=== PATIENT | female | born 1970 | race Caucasian/White ===

== ENCOUNTER 2017-09-15 00:24 | Emergency (ER) | payer OTHER ==
[2017-09-15] MEDS ORDERED: MORPHINE SULFATE 10 MG/ML SYRINGE IVP STA (00:41)
[2017-09-15] MEDS ORDERED: ONDANSETRON 4 MG/2 ML VIAL IVP STA (00:41)
--- NOTE | 2017-09-15 00:48 | ED ---
General Adult HPI - General Chief complaint: Urogenital Stated complaint: abdominal pain Time Seen by Provider: 09/15/17 00:34 Source: patient Mode of arrival: ambulatory Limitations: no limitations - History of Present Illness Initial comments: 47 year-old female patient presents to emergency department today with complaints of lower abdominal pain and lower back pain since yesterday afternoon. Patient states that she has had no urine output since 0300 yesterday morning. She states that at that time she voided a very small amount. States that she has not had any urine output at all throughout the rest of the day. States that the pain in her lower abdomen seems to be getting worse. She describes it as a sharp cramping pain. Prior to this she states that she was urinating normally, denying any dysuria, hematuria, urinary frequency, or urinary urgency. States that she has been having normal bowel movements, the last one was yesterday. She denies any nausea or vomiting with this. Patient did have an elevated temperature in triage however was unaware that she had a fever. Patient denies any recent rash, chills, shortness breath , chest pain, abdominal pain, nausea, vomiting, diarrhea, constipation, numbness , tingling, dizziness, weakness, headache, visual changes, or any other complaints. She states she is perimenopausal, states she has had a tubal ligation approximately 9 years ago. She does have a past medical history significant for endometriosis. States that she did have surgery on her uterus at one time and they did accidentally rupture the bladder. She states that she has not had any problems urinating since this procedure. - Related Data Previous Rx's Medication Instructions Recorded Hydrocodone/Acetaminophen [[place] 1 tab PO Q6HR PRN #15 tab 09/15/17 5-325] Allergies Allergy/AdvReac Type Severity Reaction Status Date / Time No Known Allergies Allergy Verified 09/15/17 00:32 Review of Systems ROS Statement: Those systems with pertinent positive or pertinent negative responses have been documented in the HPI. ROS Other: All systems not noted in ROS Statement are negative. Past Medical History Additional Past Medical History / Comment(s): endometriosis. fibroid cysts. History of Any Multi-Drug Resistant Organisms: None Reported Additional Past Surgical History / Comment(s): laproscopic abdominal surgery. Past Psychological History: No Psychological Hx Reported Smoking Status: Current every day smoker Past Alcohol Use History: Occasional Past Drug Use History: None Reported General Exam Limitations: no limitations General appearance: alert, in no apparent distress, other (Is a well-developed, well-nourished adult female patient in no acute distress. Vital signs upon presentation are temperature 100.3F, pulse 101, respirations 16, blood pressure 191/96, pulse ox 100% on room air.) Respiratory exam: Present: normal lung sounds bilaterally. Absent: respiratory distress, wheezes, rales, rhonchi, stridor Cardiovascular Exam: Present: regular rate, normal rhythm, normal heart sounds. Absent: systolic murmur, diastolic murmur, rubs, gallop, clicks GI/Abdominal exam: Present: soft, distended, tenderness (Suprapubic tenderness) , normal bowel sounds, hyperactive bowel sounds. Absent: guarding, rebound, rigid Back exam: Present: normal inspection, CVA tenderness (R). Absent: CVA tenderness (L) Neurological exam: Present: alert, oriented X3, CN II-XII intact Psychiatric exam: Present: normal affect, normal mood Skin exam: Present: warm, dry, intact, normal color. Absent: rash Course Vital Signs 09/15/17 09/15/17 09/15/17 00:29 02:50 03:58 Temperature 100.3 F H 98.5 F 98.7 F Pulse Rate 101 H 82 80 Respiratory 16 18 16 Rate Blood Pressure 191/96 150/88 149/80 O2 Sat by Pulse 100 98 99 Oximetry Medical Decision Making - Medical Decision Making 37 year-old female patient was sent in for evaluation of lower abdominal pain and urinary retention. Physical exam did reveal some mild lower abdominal tenderness. Labs reviewed and did show an elevated AST 95, ALT 116. Urinalysis was negative for any acute process. She did have a bladder scan that revealed 100 mL in the bladder, she is still had no urinary output was still feeling uncomfortable so we did do a straight cath and did obtain 600 mL of urine. X-ray of the abdomen did show a nonacute abdomen, bladder does not appear dilated. I did review this film myself and it did show extensive bowel gas, and a fluid level in the cecum. Patient was feeling somewhat better after receiving medications here in the department. Upon reexamination patient did reveal that she does have a history of ovarian cysts, and this does feel similar to when she had a ruptured cyst in the past. Patient is traveling here from [place], she refuses outpatient ultrasound. States that she will follow- up when she arrives back in [place]. She was given pain medication for management. She is instructed to follow-up as soon as she can with her primary care physician. She is instructed to return here immediately for any new, worsening, or concerning symptoms. She verbalizes understanding and agrees with this plan. - Lab Data Result diagrams: 09/15/17 01:09/15/17 01: Lab Results 09/15/17 09/15/17 09/15/17 Range/Units 01: 01: 02:30 WBC 6.2 (3.8-10.6) k/uL RBC 3.75 L (3.80-5.40) m/uL Hgb 13.2 (11.4-16.0) gm/dL Hct 41.2 (34.0-46.0) % MCV 110.1 H (80.0-100.0) fL MCH 35.2 H (25.0-35.0) pg MCHC 31.9 (31.0-37.0) g/dL RDW 14.2 (11.5-15.5) % Plt Count 270 (150-450) k/uL Neutrophils % 63 % Lymphocytes % 26 % Monocytes % 6 % Eosinophils % 2 % Basophils % 1 % Neutrophils # 3.9 (1.3-7.7) k/uL Lymphocytes # 1.6 (1.0-4.8) k/uL Monocytes # 0.3 (0-1.0) k/uL Eosinophils # 0.1 (0-0.7) k/uL Basophils # 0.1 (0-0.2) k/uL Manual Slide Review Performed Macrocytosis Marked Sodium 141 (137-145) mmol/L Potassium 4.0 (3.5-5.1) mmol/L Chloride 110 H (98-107) mmol/L Carbon Dioxide 21 L (22-30) mmol/L Anion Gap 10 mmol/L BUN 11 (7-17) mg/dL Creatinine 0.60 (0.52-1.04) mg/dL Est GFR (MDRD) Af Amer >60 (>60 ml/min/1.73 sqM) Est GFR (MDRD) Non-Af >60 (>60 ml/min/1.73 sqM) Glucose 94 (74-99) mg/dL Calcium 9.9 (8.4-10.2) mg/dL Total Bilirubin 0.3 (0.2-1.3) mg/dL AST 95 H (14-36) U/L ALT 116 H (9-52) U/L Alkaline Phosphatase 87 (38-126) U/L Total Protein 7.1 (6.3-8.2) g/dL Albumin 4.3 (3.5-5.0) g/dL Amylase 79 (30-110) U/L Lipase 268 (23-300) U/L Urine Color Light Yellow Urine Appearance Clear (Clear) Urine pH 6.0 (5.0-8.0) Ur Specific [place] 1.003 (1.001-1.035) Urine Protein Negative (Negative) Urine Glucose (UA) Negative (Negative) Urine Ketones Negative (Negative) Urine Blood Negative (Negative) Urine Nitrite Negative (Negative) Urine Bilirubin Negative (Negative) Urine Urobilinogen <2.0 (<2.0) mg/dL Ur Leukocyte Esterase Negative (Negative) Urine HCG, Qual (Not Detectd) 09/15/17 Range/Units 02:30 WBC (3.8-10.6) k/uL RBC (3.80-5.40) m/uL Hgb (11.4-16.0) gm/dL Hct (34.0-46.0) % MCV (80.0-100.0) fL MCH (25.0-35.0) pg MCHC (31.0-37.0) g/dL RDW (11.5-15.5) % Plt Count (150-450) k/uL Neutrophils % % Lymphocytes % % Monocytes % % Eosinophils % % Basophils % % Neutrophils # (1.3-7.7) k/uL Lymphocytes # (1.0-4.8) k/uL Monocytes # (0-1.0) k/uL Eosinophils # (0-0.7) k/uL Basophils # (0-0.2) k/uL Manual Slide Review Macrocytosis Sodium (137-145) mmol/L Potassium (3.5-5.1) mmol/L Chloride (98-107) mmol/L Carbon Dioxide (22-30) mmol/L Anion Gap mmol/L BUN (7-17) mg/dL Creatinine (0.52-1.04) mg/dL Est GFR (MDRD) Af Amer (>60 ml/min/1.73 sqM) Est GFR (MDRD) Non-Af (>60 ml/min/1.73 sqM) Glucose (74-99) mg/dL Calcium (8.4-10.2) mg/dL Total Bilirubin (0.2-1.3) mg/dL AST (14-36) U/L ALT (9-52) U/L Alkaline Phosphatase (38-126) U/L Total Protein (6.3-8.2) g/dL Albumin (3.5-5.0) g/dL Amylase (30-110) U/L Lipase (23-300) U/L Urine Color Urine Appearance (Clear) Urine pH (5.0-8.0) Ur Specific [place] (1.001-1.035) Urine Protein (Negative) Urine Glucose (UA) (Negative) Urine Ketones (Negative) Urine Blood (Negative) Urine Nitrite (Negative) Urine Bilirubin (Negative) Urine Urobilinogen (<2.0) mg/dL Ur Leukocyte Esterase (Negative) Urine HCG, Qual Not Detected (Not Detectd) - Radiology Data Radiology results: report reviewed, image reviewed 2 views of the abdomen show no sign of intestinal obstruction or pneumoperitoneum. Fecal pattern is normal. There is full doubleness cecum. There are no pathologic calcifications over the kidneys. Lung bases are clear. There is no sign of a mass. Impression by Dr. Singleton shows nonacute abdomen. Bladder does not appear dilated. Disposition Clinical Impression: Abdominal pain Disposition: HOME SELF-CARE Condition: Good Instructions: Abdominal Pain (ED) Additional Instructions: Take medications as directed. Follow-up with your primary care physician for recheck in 1-2 days. Return here immediately for any new, worsening, or concerning symptoms. Prescriptions: Hydrocodone/Acetaminophen [[place] 5-325] 1 tab PO Q6HR PRN #15 tab PRN Reason: Pain Referrals: None,Stated [Primary Care Provider] - 1-2 days Time of Disposition: 03:43
--- NOTE | 2017-09-15 01:46 | XR ---
EXAMINATION TYPE: XR KUB DATE OF EXAM: 09/15/2017 COMPARISON: NONE HISTORY: Pain TECHNIQUE: 2 views FINDINGS: There is no sign of intestinal obstruction or pneumoperitoneum. Fecal pattern is normal. Th ere is fluid level in the cecum. There are no pathologic calcifications over the kidneys. Lung bases are clear. There is no sign of a mass. IMPRESSION: Nonacute abdomen. Bladder does not appear dilated.
[2017-09-15 01:53] LABS: Basophils # (A) 0.1 k/uL (0-0.2); Basophils % (A) 1 %; CH 36.9; CHCM 33.7; Eosinophils # (A) 0.1 k/uL (0-0.7); Eosinophils % (A) 2 %; HCT 41.2 % (34.0-46.0); HDW 2.17; HGB 13.2 gm/dL (11.4-16.0); Luc # (Auto) 0.15; Luc % (Auto) 2; Lymphocytes # (A) 1.6 k/uL (1.0-4.8); Lymphocytes % (A) 26 %; MCH 35.2 pg (25.0-35.0); MCHC 31.9 g/dL (31.0-37.0); MCV 110.1 fL (80.0-100.0); Macrocytosis Marked; Mean Platelet Volume 8.8; Monocytes # (A) 0.3 k/uL (0-1.0); Monocytes % (A) 6 %; Neutrophils # (A) 3.9 k/uL (1.3-7.7); Neutrophils % (A) 63 %; RBC 3.75 m/uL (3.80-5.40); RDW 14.2 % (11.5-15.5); WBC 6.2 k/uL (3.8-10.6); WBC (Perox) 6.15
[2017-09-15 02:06] LABS: Manual Review Performed
[2017-09-15 02:12] LABS: ALT 116 U/L (9-52); AST 95 U/L (14-36); Alkaline Phosphatase 87 U/L (38-126); Amylase 79 U/L (30-110); Anion Gap 10 mmol/L; Blood Urea Nitrogen 11 mg/dL (7-17); Calcium 9.9 mg/dL (8.4-10.2); Carbon Dioxide 21 mmol/L (22-30); Chloride 110 mmol/L (98-107); Glucose 94 mg/dL (74-99); Non-African American GFR(MDRD) >60 (>60 ml/min/1.73 sqM); Sodium 141 mmol/L (137-145); Total Bilirubin 0.3 mg/dL (0.2-1.3); Total Protein 7.1 g/dL (6.3-8.2)
[2017-09-15 03:17] LABS: Appearance,Urine Clear (Clear); Bilirubin,Urine Negative (Negative); Glucose,Urine (UA) Negative (Negative); Ketones,Urine Negative (Negative); Leukocyte Esterase,Urine Negative (Negative); Nitrite,Urine Negative (Negative); Protein,Urine Negative (Negative); Specific Gravity,Urine 1.003 (1.001-1.035); UA Billing (MACRO vs. MICRO) CHEM; Urobilinogen,Urine <2.0 mg/dL (<2.0)
[2017-09-15 03:59] VITALS: BP 149/80; PULSE 80; RESP 16; TEMP 98.7
== END 2017-09-15 03:59 | disposition home or self-care (01) ==
LOC: EC 00:24
DX: R10.30 Lower abdominal pain, unspecified (principal); M54.5 Low back pain; F17.200 Nicotine dependence, unspecified, uncomplicated
CPT/HCPCS: 51701 ×2; 96374 ×2; 96375 ×2; 99284 ×2; 51798; 36415; 80053; 82150; 83690; 85025; 81003; 81025; 74000; J2270; J2405